=== PATIENT | female | born 1940 | race Two or more races ===

== ENCOUNTER 2020-05-10 05:30 | Day surgery (SDC) | payer OTHER ==
[~2020-05-10 05:30] MED LIST: COZAAR100 MG PO; DILTIAZEM ER180 M3 PO; GLIMEPIRIDE2 MG; SIMVASTATIN20 MG PO
[2020-05-10] MEDS ORDERED: KEFLEX750 MG PO (09:26)
== END 2020-05-10 12:45 | disposition home or self-care (01) ==
LOC: CIR.AMB 05:30
PROVIDERS: ATTEND Obstetrics & Gynecology Gynecology
DX: N32.81 Overactive bladder (principal); Z20.822 Contact with and (suspected) exposure to COVID-19
CPT/HCPCS: 64590; 64581; 95972; C1778; L8679

== ENCOUNTER 2022-06-27 08:13 | Outpatient (CLI) | payer OTHER ==
[~2022-06-27 08:13] MED LIST changes: +KEFLEX750 MG PO
== END 2022-06-27 08:51 | disposition home or self-care (01) ==
LOC: MRI 08:13
PROVIDERS: ATTEND Physical Medicine & Rehabilitation Pain Medicine
DX: M54.17 Radiculopathy, lumbosacral region (principal)
CPT/HCPCS: 72148

== ENCOUNTER 2024-12-15 12:00 | Day surgery (SDC) | payer OTHER ==
[2024-12-09 09:36] LABS: BASO % 0.7 % (0.1-1.2); EOS # 0.14 (0.04-0.54); EOS % 1.7 % (0.7-7.0); LYMPH # 1.61 (1.18-3.74); LYMPH % 19.4 % (19.3-53.1); MEAN PLATELET VOLUME 9.00 fl (9.4-12.4); MONO # 0.71 (0.24-0.82); MONO % 8.6 % (4.7-12.5); NEUT # 5.71 (1.56-6.13); NEUT % 68.9 % (34.0-71.1); RED CELL DISTRIBUTION WIDTH 14.0 % (11.6-14.4)
[2024-12-09 10:05] LABS: INR 1.02
[2024-12-09 10:26] LABS: ALT/SGPT 22.0 U/L (12-78); AST/SGOT 21.0 U/L (15-37); BILIRUBIN TOTAL 0.63 mg/dL (0.3-1.2); BUN CREA RATIO 24.0 (7.0-25.0); CREATININE SERUM 0.76 mg/dL (0.55-1.02); GFR 72.68; GLOBULINA 3.6 G/DL (2.4-3.5); GLUCOSE FASTING 133.0 mg/dL (65-100); OSMOLALITY SERUM 291.0 MOSM/KG (275-295)
[2024-12-09 10:49] VITALS: BP 143/57
[2024-12-09 10:59] LABS: URINE APPEARANCE Clear; URINE BILIRRUBIN Negative (NEGATIVE); URINE BLOOD Large; URINE COLOR Yellow; URINE GLUCOSE Negative (NEGATIVE); URINE KETONE Negative (NEGATIVE); URINE LEUKOCYTE Moderate; URINE NITRATE Negative; URINE PROTEIN 30 (NEGATIVE); URINE UROBILINOGEN 0.2 E.U./dl
[2024-12-09 11:02] LABS: URINE BACTERIA 100.7 uL (0.0-1933); URINE CAST 2.49 uL (0.0-1.40); URINE EPITHELIAL CELLS 1.9 uL (0.0-38.8); URINE RBC 831.4 uL (0.0-20.8); URINE WBC 569.5 uL (0.0-23.2)
[~2024-12-15] VITALS: Ht 152.4 cm; Wt 53.1 kg
[~2024-12-15 12:00] MED LIST changes: +CEFAZOLIN SODIUM 1,000 MG VIAL ONE; +FUROSEMIDE; +GENTAMICIN SULFATE 40 MG/ML VIAL ONE; +LIDOCAINE HCL 1% 20 ML VIAL IJ ONE; +MULTIVITAMIN; +NIFEDIPINE; +PANTOPRAZOLE; +VALSARTAN; +XARELTO
[2024-12-15] MEDS ORDERED: CHLORHEXIDINE GLUCONATE 120 ML BOTTLE TOP ONE (15:45)
[2024-12-15] MEDS ORDERED: LIDOCAINE HCL 1% 10ML VIAL IJ ONE (15:45)
[2024-12-15] MEDS ORDERED: GENTAMICIN SULFATE 40 MG/ML VIAL IR ONE (15:45)
== END 2024-12-15 12:01 | disposition home or self-care (01) ==
LOC: CIR.AMB 12:00
PROVIDERS: ATTEND Obstetrics & Gynecology Gynecology
DX: N39.41 Urge incontinence (principal); N32.81 Overactive bladder; T85.111A Breakdown (mechanical) of implanted electronic neurostimulator of peripheral nerve electrode (lead), initial encounter